=== PATIENT | male | born 1945 | race African-American/Black ===

== ENCOUNTER 2017-03-29 16:46 | Emergency (ER) | payer MEDICARE, BC ==
[2017-03-29] MEDS ORDERED: Adacel (T-DAP) 0.5 ML VIAL ONE (19:06)
[2017-03-29] MEDS ORDERED: Lidocaine 1% w/Epinephrine 1:200K 30 ML VIAL ONE (19:06)
[2017-03-29] MEDS ORDERED: Sodium Bicarbonate 2.4 MEQ/5 ML ONE (19:06)
[2017-03-29] MEDS ORDERED: Aspirin 325 MG TAB ONE (20:13)
== END 2017-03-29 20:30 | disposition home or self-care (01) ==
LOC: ERS 16:46
DX: S01.111A Laceration without foreign body of right eyelid and periocular area, initial encounter (principal); I10 Essential (primary) hypertension; G20 Parkinson's disease; W19.XXXA Unspecified fall, initial encounter; Y93.02 Activity, running
CPT/HCPCS: 12011; 90471; 90715

== ENCOUNTER 2017-04-03 10:23 | Emergency (ER) | payer MEDICARE, BC | END 2017-04-03 11:25 | disposition home or self-care (01) | LOC: ERS 10:23 | DX: S01.81XD Laceration without foreign body of other part of head, subsequent encounter (principal); I10 Essential (primary) hypertension; G20 Parkinson's disease ==

== ENCOUNTER 2018-07-22 14:40 | Inpatient (IN) | payer MEDICARE, BC ==
[2018-07-22 15:13] LABS: #Eosinphils 0.2 thou/uL (0.0-0.7); #Lymphocytes 1.3 thou/uL (1.20-3.40); #Monocytes 0.7 thou/uL (0.11-0.59); #Neutrophils 5.8 thou/uL (1.40-6.50); %Basophils 0.1 % (0.0-1.0); %Eosinophils 2.2 % (0.0-10.0); %Lymphocytes 16.1 % (21.0-51.0); %Monocytes 9.2 % (0.0-10.0); %Neutrophils 72.4 % (42.0-75.0); Hemoglobin 11.5 g/dL (14.0-18.0); Mean Corpuscular HGB CONC 32.6 g/dL (32.0-36.0); Mean Corpuscular Hemoglobin 28.4 pg (27.0-31.0); Mean Platelet Volume 8.6 fL (7.4-10.4); Platelet Count 126 thou/uL (130-400); RBC Distribution Width 11.6 % (11.5-14.5); Red Blood Cell (RBC) Count 4.07 mill/uL (4.70-6.10)
[2018-07-22 15:33] LABS: ALT (SGPT) 13 U/L (8-55); AST (SGOT) 11 U/L (5-34); Albumin 3.6 g/dL (3.4-4.8); Alkaline Phosphatase 63 U/L (40-150); Anion Gap 22 mmol/L (10-20); BUN (Urea Nitrogen) 80 mg/dL (8.4-25.7); Bilirubin, Total 0.5 mg/dL (0.2-1.2); CK (CPK) 59 U/L (30-200); Calc. Creatinine Clearance 0 mL/min (70-130); Calcium 8.9 mg/dL (7.8-10.44); Carbon Dioxide 20 mmol/L (23-31); Chloride 94 mmol/L (98-107); Estimated GFR-MDRD 10; Globulin 2.9 g/dL (2.4-3.5); Glucose 129 mg/dL (83-110); Lipase 37 U/L (8-78); Potassium 4.7 mmol/L (3.5-5.1); Protein, Total 6.5 g/dL (5.8-8.1); Sodium 131 mmol/L (136-145)
--- NOTE | 2018-07-22 15:44 | RAD ---
CHEST 1 VIEW: Date: 07/22/18 HISTORY: Generalized weakness. COMPARISON: 01/22/09. FINDINGS: Monitor leads overlie the chest. Heart size within normal limits. The lungs are clear. No pneumonia, edema, or other acute process. IMPRESSION: No acute intrathoracic disease. POS: [facility]
[2018-07-22 15:55] LABS: CKMB 2.3 ng/mL (0-6.6)
[2018-07-22 16:10] LABS: Bilirubin Negative (Negative); Blood, Urine Large (Negative); Clarity CLEAR (Clear); Glucose, Urine (Dipstick) Negative (Negative); Leukocyte Negative (Negative); Nitrite Negative (Negative); Protein, Urine (Dipstick) Negative (Neg-Trace); Specific Gravity, Urine 1.011 (1.002-1.036); Urobilinogen 0.2 mg/dL (0.2-1.0)
[2018-07-22 16:11] LABS: Bacteria/HPF None Seen HPF (None Seen); Hyaline Casts/LPF 0-3 HYALINE CAST LPF (0-3 Hyaline); RBC/HPF GREATER THAN 50-TNTC HPF (0-3); Squamous Epithelial None Seen HPF (0-3); WBC/HPF 0-3 HPF (0-3)
[2018-07-22] MEDS ORDERED: cefTRIAXone\\ROCEPHIN 1 GM VIAL ONE (16:17)
--- NOTE | 2018-07-22 16:45 | CT ---
CT BRAIN WITHOUT CONTRAST: Date: 07-22-18 History: Weakness Comparison: 01-22-09 FINDINGS: Noncontrast enhanced CT images of the brain demonstrate no evidence of acute intracranial masses, hem orrhages, strokes or contusions. The ventricles are of normal size. IMPRESSION: Normal CT brain. POS: [facility]
[2018-07-22] MEDS ORDERED: Acetaminophen 325 MG TAB PO PRN (17:08)
[2018-07-22] MEDS ORDERED: Bisacodyl 5 MG TAB PO PRN (17:08)
[2018-07-22] MEDS ORDERED: Acetaminophen 650 MG Suppository PR PRN (17:08)
[2018-07-22] MEDS ORDERED: hydrALAZINE 20 MG/ML VIAL SLOW IVP PRN (17:17)
--- NOTE | 2018-07-22 17:56 | HP ---
PRIMARY CARE PROVIDER: Dr. Myranda Walters. CHIEF COMPLAINT: Generalized weakness. HISTORY OF PRESENT ILLNESS: Mr. Mendoza is a pleasant 72-year-old gentleman, who was seen at [facility] on July 22, 2018. He has a history of hypertension and chronic back pain. He also has a history of Parkinson disease. He reports that he saw Dr. Autumn Reyes, approximately a year ago for Parkinson disease. He was prescribed a medication for Parkinson's, but he stopped taking it because it made him nauseous. He has not followed up with Neurology. More recently, over the last week, he had suprapubic pain. He describes it as a pressure-like sensation, 9.5/10, nonradiating, improved with urination. He reports that his urine has been only a dribble over the last week. He also reports generalized weakness over the last week. He usually ambulates with a walker. His family reports that over the last one week he has not been ambulating much. REVIEW OF SYSTEMS: All other systems reviewed and found to be negative. PAST MEDICAL HISTORY: Hypertension, chronic back pain, Parkinson disease. He also reports that he was started on diuretic for lower extremity swelling. PAST SURGICAL HISTORY: None. FAMILY HISTORY: No family history of coronary artery disease. SOCIAL HISTORY: The patient denies tobacco use, alcohol use, or recreational drug use. CODE STATUS: I discussed his code status. He is full code. ALLERGIES: NO KNOWN DRUG ALLERGIES. CURRENT MEDICATIONS: 1. Torsemide 10 mg 2 times a day. 2. Ranitidine 150 mg 2 times a day. 3. Lisinopril 5 mg daily. 4. Potassium chloride 10 mEq daily. PHYSICAL EXAMINATION: GENERAL: On examination, Mr. Mendoza is awake and alert, not in acute distress. VITAL SIGNS: Blood pressure is 144/84, pulse 95, respiratory rate 20, and oxygen saturation 95% on room air. He is afebrile. EYES: No scleral icterus, no conjunctival pallor. ENT: Dry mucosal membranes, no oropharyngeal erythema or exudates. NECK: Supple, nontender, and trachea is midline. RESPIRATORY: Accessory muscles of breathing are not active. Chest wall movements are symmetric bilaterally. LUNGS: Clear to auscultation without wheeze, rhonchi, or crepitations. CARDIOVASCULAR: S1 and S2 are heard, regular. Peripheral pulses palpable. No carotid bruit. No pericardial rub. ABDOMEN: Distended, mild suprapubic tenderness. No guarding or rigidity. Bowel sounds are heard. NEUROLOGIC: Cranial nerves 2 through 12 are intact. He has a parkinsonian tremor. SKIN: No rashes or subcutaneous nodules. LYMPHATIC: No cervical lymphadenopathy. PSYCHIATRIC: Normal mood, normal affect, the patient is oriented to person and place, not to time. LABORATORY DATA: Mr. Mendoza' labs and investigations were reviewed. I reviewed his electrocardiogram, which shows normal sinus rhythm, no ST changes to suggest an acute coronary syndrome. I also reviewed his chest x-ray, which does not show any pulmonary infiltrates. Noncontrast CT scan of the brain was normal. He has normal white count, normocytic anemia with hemoglobin 11.5, decreased platelet count of 126,000, decreased sodium of 131, decreased carbon dioxide of 20, elevated anion gap of 22, elevated blood urea nitrogen of 80 and elevated creatinine of 6.79. LFTs are normal. Troponin I is indeterminate at 0.096. Urinalysis is positive for blood, negative for nitrite and leukocyte esterase. ASSESSMENT AND PLAN: Mr. Mendoza is a pleasant 72-year-old gentleman, who was seen at [facility] on July 22, 2018. His problem list includes: 1. Acute kidney injury: Mr. Mendoza is presenting with acute kidney injury. He has elevated creatinine of 6.79, last known creatinine was 0.84 in March of 2018. He had a Foss catheter placed in the emergency room with removal of large volume of urine, which was bloody, with improvement in symptoms. Acute kidney injury is most likely postrenal. I am awaiting renal ultrasound. He will be admitted to the hospital for further management. Urology and Nephrology services are being consulted. We will hold nephrotoxic medications including lisinopril and torsemide for now. We will provide gentle hydration. 2. Elevated troponin: The patient denies any chest pain. Elevated troponin I is most likely secondary to renal failure. We will recheck troponin level. 3. Hypertension: We will hold lisinopril. We will start the patient on p.r.n. IV hydralazine. 4. Anion gap metabolic acidosis: Most likely secondary to uremia from acute kidney injury. 5. Hyponatremia: We will provide normal saline and recheck sodium level. Many thanks for allowing me to participate in your patient's care. Please feel free to contact me with any questions or concerns. LEVEL OF RISK: High. LEVEL OF COMPLEXITY: High. Job ID: [id number]
[2018-07-22 20:16] VITALS: BMI 29.1
[2018-07-22] MEDS: Famotidine 20 MG TAB PO SCH (22:49)
[2018-07-22] MEDS: traMADol HCl 50 MG TAB PO PRN (22:49)
[2018-07-22] MEDS: Sodium Chloride 0.9% 1,000 ML IV SCH (22:50)
[2018-07-22 23:12] LABS: Hemoglobin 10.6 g/dL (14.0-18.0)
[2018-07-23] MEDS ORDERED: Sodium Chloride 0.9% 500 ML IV SCH (01:45)
[2018-07-23] MEDS: Sodium Chloride 0.9% 1,000 ML IV SCH ×2 (04:37→21:04)
[2018-07-23] MEDS: Famotidine 20 MG TAB PO SCH ×2 (09:30→20:20)
[2018-07-23 09:50] LABS: #Eosinphils 0.2 thou/uL (0.0-0.7); #Monocytes 0.8 thou/uL (0.11-0.59); #Neutrophils 5.1 thou/uL (1.40-6.50); %Basophils 0.5 % (0.0-1.0); %Eosinophils 2.4 % (0.0-10.0); %Lymphocytes 14.3 % (21.0-51.0); %Monocytes 11.1 % (0.0-10.0); %Neutrophils 71.7 % (42.0-75.0); Hemoglobin 9.3 g/dL (14.0-18.0); Mean Corpuscular Hemoglobin 27.2 pg (27.0-31.0); Mean Platelet Volume 8.4 fL (7.4-10.4); Platelet Count 109 thou/uL (130-400); RBC Distribution Width 11.6 % (11.5-14.5); Red Blood Cell (RBC) Count 3.41 mill/uL (4.70-6.10); White Blood Cell (WBC) Count 7.1 thou/uL (4.8-10.8)
--- NOTE | 2018-07-23 10:08 | CON ---
DATE OF CONSULTATION: HISTORY OF PRESENT ILLNESS: Mr. Mendoza is a 72-year-old black male, who was admitted for generalized malaise. He was found to have a distended bladder. His creatinine was also significantly abnormal from normal baseline. We are now consulted for his acute kidney injury. Of note is that a Foss catheter was inserted and a peak urine output was noted. The suggestion that he may have a low bladder outlet obstruction was made. He also has a bloody urine. Renal ultrasound is pending. A Urology consult has been done. REVIEW OF SYSTEMS: No chest pain or shortness of breath. Positive for generalized malaise. Positive for chronic resting tremors. No nausea. No vomiting. Decreased appetite. Decreased energy level. No headache. No diplopia. No fever or chills. MEDICATIONS: 1. Tylenol 650 mg q.4 p.r.n. 2. Hydralazine 10 mg IV q.6 p.r.n. 3. Normal saline 75 mL/h, status post ceftriaxone. 4. Pepcid 20 mg tablet b.i.d. Home medications includes the following; 1. Tramadol 50 mg q.6 p.r.n. 2. Torsemide 10 mg p.o. b.i.d. 3. Ranitidine 150 mg p.o. b.i.d. 4. KCl 10 mEq once a day. 5. Lisinopril 5 mg daily. 6. Lorazepam 1 mg daily. PAST MEDICAL HISTORY: 1. The patient has BPH. 2. He has Parkinson disease. 3. Chronic leg edema. PAST SURGICAL HISTORY: No significant surgeries. SOCIAL HISTORY: The patient is , has 2 children. 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 Education, high school. Currently, no smoking, no alcohol intake, and no IV drug abuse. ALLERGIES: NO KNOWN DRUG ALLERGIES. TRAUMA: None. IMMUNIZATIONS: Up-to-date. HOSPITALIZATIONS: Please see past medical history. FAMILY HISTORY: No family history of ESRD. PHYSICAL EXAMINATION: VITAL SIGNS: Blood pressure 114/61, heart rate 67, respiratory rate 20, temperature 98.5, and pulse ox 100%. GENERAL: Awake, supine, comfortable, not in overt distress. SKIN: Decreased turgor. HEENT: He has pinkish conjunctivae. Anicteric sclerae. NECK: No neck mass. No carotid bruits. No JVD. CHEST: No deformities. LUNGS: Clear breath sounds. HEART: Normal sinus rhythm. No murmurs. No gallops. No rubs. ABDOMEN: Globular, soft, and nontender. No masses. EXTREMITIES: No edema. No deformities. LABORATORY DATA: Laboratories of July 22, 2018; sodium 131, potassium 4.7, chloride 94, carbon dioxide 20, BUN is 80, creatinine 6.79. On April 04, 2018, creatinine 0.84. IMAGING DATA: Renal ultrasound is pending. On July 22, 2018; chest x-ray shows no CHF or infiltrates. CT scan of the brain on July 22, 2018; normal CT finding. ASSESSMENT AND PLAN: Acute kidney injury - Most likely secondary from a low bladder outlet obstruction - also consider hemodynamically-mediated renal dysfunction. There may also be a component of prerenal azotemia. The patient was on TIFFANY inhibitors and diuretics. Currently, the TIFFANY inhibitors and diuretics are on hold. He is also receiving a gentle volume repletion. There is no indication for any dialytic intervention. Renal ultrasound is pending. Urology consult has been done. Reviewed the urinalysis when the urine is less bloody. Overall, agree with current management. Job ID: [id number] MTDD
[2018-07-23 10:13] LABS: Anion Gap 11 mmol/L (10-20); BUN (Urea Nitrogen) 29 mg/dL (8.4-25.7); Calc. Creatinine Clearance 65 mL/min (70-130); Carbon Dioxide 22 mmol/L (23-31); Chloride 108 mmol/L (98-107); Estimated GFR-MDRD 77; Glucose 84 mg/dL (83-110); Potassium 4.9 mmol/L (3.5-5.1); Sodium 136 mmol/L (136-145)
--- NOTE | 2018-07-23 13:12 | ULT ---
RENAL ULTRASOUND: INDICATION: Pain, obstructive uropathy. FINDINGS: The left kidney as demonstrated is 9.3 cm in length and the right kidney 9.3 cm in length. No eviden ce of hydronephrosis of the kidneys. There is a Foss catheter within the urinary bladder. Prominen t mass effect upon the urinary bladder by heterogeneous irregular soft tissue echogenicity may relate to prostatomegaly. IMPRESSION: 1. No obstructive uropathy of either kidney. 2. Probable enlarged heterogeneous prostate gland adjacent the urinary bladder with associated mass effect. Recommend correlation with physical exam and prostate specific antigen values. POS: [facility]
[2018-07-23] MEDS ORDERED: Milk Of Magnesia 30 ML UDCUP PO PRN (14:26)
--- NOTE | 2018-07-23 15:43 | PDOC.PN ---
- Subjective Encounter Start Date: 07/23/18 Encounter Start Time: 09:00 Pt seen for followup re: acute kidney injury. Feels better, no complaints. - Objective Resuscitation Status - Order Detail: 07/22/18 17:08 Resuscitation Status Routine Resuscitation Status: FULL: Full Resuscitation Discussed with: patient MARIO ALBERTO Reviewed: Yes Vital Signs & Weight: Vital Signs (12 hours) Temp Pulse Resp BP BP Pulse Ox 07/23/18 12:40 98.1 F 71 20 128/73 99 07/23/18 09:30 100 07/23/18 08:00 98.5 F 67 20 114/61 100 07/23/18 04:40 98.8 F 77 18 93/56 L 96 Weight Weight 175 lb 0.752 oz I&O: 07/22/18 07/23/18 07/24/18 06:59 06:59 06:59 Intake Total 1672 Output Total 3350 Balance -1678 Result Diagrams: 07/23/18 09:22 07/23/18 09:22 Additional Labs: labs reviewed by me Phys Exam - Physical Examination Constitutional: NAD HEENT: moist MMs, sclera anicteric, oral pharynx no lesions, 2+ tonsils Neck: no nodes, no JVD, supple, full ROM Respiratory: clear to auscultation bilateral Cardiovascular: RRR, no rub S1, s2 Gastrointestinal: soft, non-tender, no distention, positive bowel sounds Neurological: moves all 4 limbs tremor Psychiatric: normal affect Dx/Plan (1) SARAH (acute kidney injury) Code(s): N17.9 - ACUTE KIDNEY FAILURE, UNSPECIFIED Status: Acute Comment: Improved, due to obstructive uropathy (2) Obstructive uropathy Code(s): N13.9 - OBSTRUCTIVE AND REFLUX UROPATHY, UNSPECIFIED Status: Acute Comment: pt started on Flomax and finasteride; s/p Foss catheter (3) Parkinson disease Code(s): G20 - PARKINSON'S DISEASE Status: Chronic Comment: pt to followup as outpatient with neurology (4) HTN (hypertension) Code(s): I10 - ESSENTIAL (PRIMARY) HYPERTENSION Status: Chronic Comment: controlled - Plan plan discussed w/ family, out of bed/ambulate, DVT proph w/SCDs * . Review of Systems - Review of Systems Constitutional: negative: fever, chills, sweats, weakness, malaise Respiratory: negative: Cough, Shortness of Breath, SOB with Excertion, Pleuritic Pain, Wheezing Cardiovascular: negative: chest pain, palpitations, orthopnea, paroxysmal nocturnal dyspnea, edema, light headedness Gastrointestinal: negative: Nausea, Vomiting, Abdominal Pain, Diarrhea, Constipation, Melena, Hematochezia Genitourinary: Hematuria. negative: Dysuria, Frequency, Incontinence, Retention Skin: negative: Rash, Lesions, Fernando, Bruising - Medications/Allergies Allergies/Adverse Reactions: Allergies Allergy/AdvReac Type Severity Reaction Status Date / Time No Known Drug Allergies Allergy Verified 07/22/18 17:07 Medications: Current Medications Acetaminophen (Tylenol) 650 mg PO Q4H PRN PRN Reason: Headache/Fever/Mild Pain (1-3) Acetaminophen (Tylenol) 650 mg RI Q4H PRN PRN Reason: Headache/Fever/Mild Pain (1-3) Bisacodyl (Dulcolax) 10 mg PO DAILYPRN PRN PRN Reason: Constipation Docusate Sodium (Colace) 100 mg PO BID [facility] Famotidine (Pepcid) 20 mg PO BID [facility] Last Admin: 07/23/18 09:30 Dose: 20 mg Finasteride (Proscar) 5 mg PO DAILY [facility] Hydralazine HCl (Apresoline) 10 mg SLOW IVP Q6H PRN PRN Reason: SBP Greater Than 170 Sodium Chloride (Normal Saline 0.9%) 1,000 mls @ 75 mls/hr IV .[id number] [facility] Last Admin: 07/23/18 04:37 Dose: 1,000 mls Magnesium Hydroxide (Milk Of Magnesium) 30 ml PO DAILYPRN PRN PRN Reason: Constipation Tamsulosin HCl (Flomax) 0.4 mg PO BID [facility] Tramadol HCl (Ultram) 50 mg PO Q6H PRN PRN Reason: Moderate to Severe Pain (6-10) Last Admin: 07/22/18 22:49 Dose: 50 mg
[2018-07-23] MEDS: Tamsulosin HCl 0.4 MG CAP PO SCH (20:20)
[2018-07-23] MEDS: traMADol HCl 50 MG TAB PO PRN (20:20)
[2018-07-23] MEDS: Docusate 100 MG CAP PO SCH (20:20)
--- NOTE | 2018-07-24 04:59 | CON ---
DATE OF CONSULTATION: 07/23/2018 REASON FOR CONSULTATION: Bladder outlet obstruction as a Foss was placed for 3450 in the ER. HISTORY OF PRESENT ILLNESS: The patient reports no prior episodes of retention. No urinary tract infections. No hematuria. No stones. First, I did not realize he had seen my partner, but it appears that he only saw Dr. Keane one time and I reviewed the case with him afterwards and ultimately I will continue to follow him. It does not appear that a PVR was checked when Dr. Keane saw him the first time and he had not followed up with him since February 2018. Prior to that, he has been followed by Dr. Fox. He has gross hematuria now, but he has never had this prior. He has had a history of elevated PSAs, but no biopsy. Per Dr. Keane's notes, he actually had been treated with antibiotics previously and the PSAs came down. PAST MEDICAL HISTORY: Significant for hypertension, Parkinson's diagnosed in , GERD, back pain, lower extremity swelling that has been chronic. PAST SURGICAL HISTORY: None. MEDICATIONS: Include; 1. Torsemide. 2. Ranitidine. 3. Lisinopril. 4. Potassium. 5. Aspirin 325 mg. ALLERGIES: NONE. SOCIAL HISTORY: No tobacco, drugs, or alcohol. He uses a walker at home and is able to ambulate. FAMILY HISTORY: Includes mother at 85 of blood disorder after a colostomy , not known, probably not for cancer and his father at 87 of diabetes complications. REVIEW OF SYSTEMS: Reveal that he has never had a colonoscopy. He has had the prostate cancer screening with elevated PSAs, but no biopsies. He has no chest pain, but he does have a cough without any shortness of breath. No fever or chills. It is not a productive cough. He has had nausea, but no vomiting, but the nausea was just after a greasy breakfast. He has been constipated when he takes tramadol and he has not gone for 4 days, but he does not actually feel constipated. He had abdominal pain before the catheter was placed and then that abdominal pain resolved. PHYSICAL EXAMINATION: VITAL SIGNS: T-max 98.8; blood pressure 114/61, previously it was 93/55; heart rate in the 60s to 80s, saturating 100% on room air. Since getting up to the floor, it looks like he had another 3L or more of urine. GENERAL: He has a left hand tremor. HEART: Regular rate and rhythm. No murmurs, gallops, or rubs. LUNGS: Clear to auscultation bilaterally. ABDOMEN: Soft, nondistended, with some crustation noted in the umbilicus. He had normoactive bowel sounds. He had no CVA tenderness. GENITOURINARY: His testes are descended and atrophic, but without masses. His phallus is circumcised without lesions with a Foss catheter in place and some blood around the catheter and at the meatus as well as maroon urine in the tubing. Digital rectal exam was deferred due to my inability to position the patient for this. LABORATORY DATA: BUN and creatinine are 29 and 1.13. It had been 6.79 when we had admitted. His baseline in March was 0.84. His urinalysis revealed 0 to 3 wbc' s, too numerous to count rbc's, no bacteria, and no squamous cells. Urinalysis from 02/26/2018, 09/04/2013, and 07/02/2012, revealed 0 to 3 wbc's, 0 to 3 rbc's, and no bacteria previously. PSA from 10/23 was 6.08 and then prior to that, it was 4.[address] back to July 2013. Renal ultrasound from 07/23/2018, revealed no hydronephrosis, stones, or masses. Foss was in the bladder with enlarged prostate. ASSESSMENT AND PLAN: I reviewed all of this with his son and him including benign prostatic hyperplasia and how the bleeding is most likely related to the prostate. However, he does deserve a workup. He already had an ultrasound, but as an outpatient, he will deserve cystoscopy. I would start tamsulosin twice a day and add finasteride. I would ensure he has no concerns for constipation and has had bowel movement sooner than later. The nurses can hand irrigate as needed. I will ensure he has physical therapy as my digital rectal exam was deferred because it was difficult for him to even roll on his side. He also has an elevated PSA, but I am not concerned about this as an acute issue nor am I concerned for metastatic prostate cancer at this time. Ultimately, he is likely to benefit from [employer] laser vaporization of the prostate despite his Parkinson's given the retention. However, with his bladder being distended as it is, it will be quite some time before he is ready to have attempted voiding trial--or that he will definitively void in the future even with surgical therapy. Job ID: [id number] MTDD
[2018-07-24] MEDS ORDERED: Ondansetron PF 4 MG/2 ML Vial IVP PRN (08:34)
[2018-07-24 08:56] LABS: #Basophils 0.1 thou/uL (0.0-0.2); #Eosinphils 0.3 thou/uL (0.0-0.7); #Lymphocytes 1.5 thou/uL (1.20-3.40); #Monocytes 0.8 thou/uL (0.11-0.59); #Neutrophils 5.7 thou/uL (1.40-6.50); %Basophils 0.8 % (0.0-1.0); %Eosinophils 3.6 % (0.0-10.0); %Lymphocytes 17.4 % (21.0-51.0); %Monocytes 9.8 % (0.0-10.0); %Neutrophils 68.4 % (42.0-75.0); Hemoglobin 9.1 g/dL (14.0-18.0); Mean Corpuscular HGB CONC 32.4 g/dL (32.0-36.0); Mean Corpuscular Hemoglobin 28.4 pg (27.0-31.0); Mean Corpuscular Volume 87.8 fL (78.0-98.0); Mean Platelet Volume 7.8 fL (7.4-10.4); Platelet Count 137 thou/uL (130-400); RBC Distribution Width 11.4 % (11.5-14.5); Red Blood Cell (RBC) Count 3.18 mill/uL (4.70-6.10); White Blood Cell (WBC) Count 8.4 thou/uL (4.8-10.8)
[2018-07-24 09:09] LABS: Anion Gap 9 mmol/L (10-20); BUN (Urea Nitrogen) 11 mg/dL (8.4-25.7); Calc. Creatinine Clearance 110 mL/min (70-130); Calcium 8.3 mg/dL (7.8-10.44); Carbon Dioxide 27 mmol/L (23-31); Chloride 104 mmol/L (98-107); Estimated GFR-MDRD Greater than 90; Glucose 101 mg/dL (83-110); Potassium 4.2 mmol/L (3.5-5.1); Sodium 136 mmol/L (136-145)
[2018-07-24] MEDS: Docusate 100 MG CAP PO SCH ×2 (09:48→19:53)
[2018-07-24] MEDS: Famotidine 20 MG TAB PO SCH ×2 (09:48→19:53)
[2018-07-24] MEDS: Tamsulosin HCl 0.4 MG CAP PO SCH ×2 (09:48→19:53)
[2018-07-24] MEDS: Finasteride 5 MG TAB PO SCH (09:48)
--- NOTE | 2018-07-24 10:30 | PRG ---
DATE OF SERVICE: 07/24/2018 SUBJECTIVE: Mr. Mendoza is a 72-year-old black male, who was admitted for generalized malaise. He was found to be in acute kidney injury. He was also found to have a low bladder outlet obstruction. Foss catheter has been inserted. With this simple maneuver, his renal function has dramatically improved. No other complaints today. Renal ultrasound did not show any renal obstruction suggestive that acute low bladder outlet obstruction may have developed only in a short duration. He has also been evaluated by Urology. No complaints of chest pain or shortness of breath. OBJECTIVE: VITAL SIGNS: Blood pressure 150/74, heart rate 81, respiratory rate 16, temperature 98.5, pulse ox 100 percent on room air. GENERAL: Awake, alert, comfortable, not in distress. SKIN: Adequate turgor. HEENT: He has pinkish conjunctivae. Anicteric sclerae. NECK: No neck mass. No carotid bruits. No JVD. CHEST: No deformities. LUNGS: Clear breath sounds. No wheezing. No crackles. HEART: Normal sinus rhythm. No murmurs, gallops, or rubs. ABDOMEN: Globular, soft, nontender. No masses. EXTREMITIES: No edema. NEUROLOGICAL: Positive for resting tremors. MEDICATIONS: Medications of July 24, 2018, were reviewed. LABORATORY DATA: Laboratories of July 24, 2018; white count 8.4, hemoglobin 9.1, hematocrit 28. Sodium 136, potassium 4.2, chloride 104, carbon dioxide 24, BUN 11, creatinine 0.67, glucose 101, calcium 8.3. Urinalysis, July 22, 2018, no protein noted, RBC greater than 50. ASSESSMENT AND PLAN: 1. Acute kidney injury - most likely secondary to low bladder outlet obstruction, much improved with placement of Foss catheter. 2. Continue current management. Continue normal saline. We felt that he may also have had a prerenal component. Please note, his lisinopril was discontinued as well as the torsemide. 3. Low bladder outlet obstruction. Urology is following. 4. Hypertension. I would probably resume or start him on another blood pressure medication. Consider nifedipine 30 mg XL tablet once daily. Job ID: [id number]
[2018-07-24] MEDS: Sodium Chloride 0.9% 1,000 ML IV SCH (11:36)
--- NOTE | 2018-07-24 14:52 | PDOC.PN ---
- Subjective Encounter Start Date: 07/24/18 Encounter Start Time: 09:20 Pt seen for followup re: obstructive uropathy. Had nausea, other no complaints. - Objective Resuscitation Status - Order Detail: 07/22/18 17:08 Resuscitation Status Routine Resuscitation Status: FULL: Full Resuscitation Discussed with: patient MARIO ALBERTO Reviewed: Yes Vital Signs & Weight: Vital Signs (12 hours) Temp Pulse Resp BP Pulse Ox 07/24/18 08:00 98.5 F 81 16 150/74 H 100 07/24/18 04:00 97.8 F 67 18 130/68 100 Weight Weight 175 lb 0.752 oz I&O: 07/23/18 07/24/18 07/25/18 06:59 06:59 06:59 Intake Total 1671 7055 Output Total 5753 6200 Balance -6908 -8772 Result Diagrams: 07/24/18 08:36 07/24/18 08:36 Additional Labs: labs reviewed by me Phys Exam - Physical Examination Constitutional: NAD HEENT: moist MMs Neck: supple Respiratory: clear to auscultation bilateral Cardiovascular: RRR Gastrointestinal: soft Neurological: moves all 4 limbs tremor Psychiatric: normal affect Dx/Plan (1) Obstructive uropathy Code(s): N13.9 - OBSTRUCTIVE AND REFLUX UROPATHY, UNSPECIFIED Status: Acute Comment: continue Flomax and finasteride; Pt has Foss catheter (2) Parkinson disease Code(s): G20 - PARKINSON'S DISEASE Status: Chronic Comment: pt to followup as outpatient (3) HTN (hypertension) Code(s): I10 - ESSENTIAL (PRIMARY) HYPERTENSION Status: Chronic Comment: controlled (4) SARAH (acute kidney injury) Code(s): N17.9 - ACUTE KIDNEY FAILURE, UNSPECIFIED Status: Resolved Comment : due to obstructive uropathy - Plan * . Review of Systems - Review of Systems Cardiovascular: negative: chest pain, palpitations, orthopnea, paroxysmal nocturnal dyspnea, edema, light headedness Gastrointestinal: Nausea. negative: Vomiting, Abdominal Pain, Diarrhea, Constipation, Melena, Hematochezia - Medications/Allergies Allergies/Adverse Reactions: Allergies Allergy/AdvReac Type Severity Reaction Status Date / Time No Known Drug Allergies Allergy Verified 07/22/18 17:07 Medications: Current Medications Acetaminophen (Tylenol) 650 mg PO Q4H PRN PRN Reason: Headache/Fever/Mild Pain (1-3) Acetaminophen (Tylenol) 650 mg RI Q4H PRN PRN Reason: Headache/Fever/Mild Pain (1-3) Bisacodyl (Dulcolax) 10 mg PO DAILYPRN PRN PRN Reason: Constipation Docusate Sodium (Colace) 100 mg PO BID [facility] Last Admin: 07/24/18 09:48 Dose: 100 mg Famotidine (Pepcid) 20 mg PO BID [facility] Last Admin: 07/24/18 09:48 Dose: 20 mg Finasteride (Proscar) 5 mg PO DAILY [facility] Last Admin: 07/24/18 09:48 Dose: 5 mg Hydralazine HCl (Apresoline) 10 mg SLOW IVP Q6H PRN PRN Reason: SBP Greater Than 170 Sodium Chloride (Normal Saline 0.9%) 1,000 mls @ 75 mls/hr IV .[id number] [facility] Last Admin: 07/24/18 11:36 Dose: 1,000 mls Magnesium Hydroxide (Milk Of Magnesium) 30 ml PO DAILYPRN PRN PRN Reason: Constipation Nifedipine (Procardia Xl) 30 mg PO DAILY [facility] Ondansetron HCl (Zofran) 4 mg IVP Q6H PRN PRN Reason: Nausea/Vomiting Last Admin: 07/24/18 08:50 Dose: 4 mg Tamsulosin HCl (Flomax) 0.4 mg PO BID [facility] Last Admin: 07/24/18 09:48 Dose: 0.4 mg Tramadol HCl (Ultram) 50 mg PO Q6H PRN PRN Reason: Moderate to Severe Pain (6-10) Last Admin: 07/23/18 20:20 Dose: 50 mg
--- NOTE | 2018-07-24 17:20 | PRG ---
DATE OF SERVICE: 07/24/2018 SUBJECTIVE: The patient has done well overnight. He seems more alert and more comfortable. He has a better appetite. He has no complaints of pain or swelling. OBJECTIVE: VITAL SIGNS: He has been afebrile. His vital signs are stable. GENITOURINARY: He put out another 3600 over the last 24 hours and even more than 1 L just in the last several hours. The urine has cleared to approximately light pink tinged and has been draining without difficulty. LABORATORY DATA: The laboratory values reveal the creatinine has now come down to 0.67. ASSESSMENT AND PLAN: We had a long discussion of how I would anticipate doing cystoscopy as an outpatient keeping the catheter in and he would be safe to be discharged from my standpoint with that. We will do a voiding trial when he does see me in the office and anticipate GreenLight laser vaporization in the near future assuming he is medically cleared and stable for this. We reviewed all of this in detail and how he should continue taking tamsulosin twice a day and finasteride once a day. Catheter care and removal information sheets were left in the chart as were prescriptions for these medicines. My office will call him once he is at home and set up a followup for voiding trial in the next 2 to 3 weeks. Job ID: [id number] MTDD
[2018-07-25] MEDS: Sodium Chloride 0.9% 1,000 ML IV SCH (00:25)
[2018-07-25 05:20] LABS: #Eosinphils 0.5 thou/uL (0.0-0.7); #Lymphocytes 1.5 thou/uL (1.20-3.40); #Monocytes 0.8 thou/uL (0.11-0.59); %Basophils 0.5 % (0.0-1.0); %Eosinophils 5.3 % (0.0-10.0); %Monocytes 8.3 % (0.0-10.0); Hemoglobin 9.3 g/dL (14.0-18.0); Mean Corpuscular HGB CONC 31.7 g/dL (32.0-36.0); Mean Corpuscular Hemoglobin 28.1 pg (27.0-31.0); Mean Corpuscular Volume 88.7 fL (78.0-98.0); Mean Platelet Volume 7.5 fL (7.4-10.4); Platelet Count 164 thou/uL (130-400); RBC Distribution Width 11.3 % (11.5-14.5); Red Blood Cell (RBC) Count 3.32 mill/uL (4.70-6.10); White Blood Cell (WBC) Count 9.9 thou/uL (4.8-10.8)
[2018-07-25 06:43] LABS: Anion Gap 10 mmol/L (10-20); BUN (Urea Nitrogen) 7 mg/dL (8.4-25.7); Calc. Creatinine Clearance 109 mL/min (70-130); Calcium 8.6 mg/dL (7.8-10.44); Carbon Dioxide 28 mmol/L (23-31); Chloride 103 mmol/L (98-107); Estimated GFR-MDRD Greater than 90; Glucose 92 mg/dL (83-110); Potassium 3.9 mmol/L (3.5-5.1); Sodium 137 mmol/L (136-145)
[2018-07-25] MEDS: Finasteride 5 MG TAB PO SCH (08:19)
[2018-07-25] MEDS: Docusate 100 MG CAP PO SCH (08:19)
[2018-07-25] MEDS: Famotidine 20 MG TAB PO SCH (08:19)
[2018-07-25] MEDS: Tamsulosin HCl 0.4 MG CAP PO SCH (08:19)
[2018-07-25] MEDS ORDERED: NIFEdipine XL 30 MG TAB PO SCH (09:00)
--- NOTE | 2018-07-25 16:24 | PRG ---
DATE OF SERVICE: 07/25/2018 SUBJECTIVE: I noted he was still in-house and he knows he will be discharged with his catheter and follow up for a voiding trial in the office. Since he was still here, I went ahead and ordered an echocardiogram as part of anticipated need for cardiac clearance. I reviewed this with him today. OBJECTIVE: VITAL SIGNS: His vitals remain stable. He still had excellent urine output and the urine is light pink to clear in the tubing. LABORATORY DATA: There is no concerning new labs or issues. ASSESSMENT: We have a 72-year-old man, admitted with bladder outlet obstruction and renal failure secondary to this with excellent postobstructive diuresis with normalization of creatinine, now on tamsulosin twice a day and finasteride once a day. Cont tamsulosin twice a day and finasteride once a day. I will check a urine as an outpatient before his voiding trial appt. I will follow up in the office for a voiding trial as well as cystoscopy and transrectal ultrasound. Job ID: [id number] MTDD
[2018-07-25 17:24] VITALS: BP 124/69; TEMP 98.9
--- NOTE | 2018-07-26 04:42 | DIS ---
DATE OF ADMISSION: 07/22/2018 DATE OF DISCHARGE: 07/25/2018 PRIMARY CARE PROVIDER: Dr. Myranda Walters. DISCHARGE DIAGNOSES: 1. Acute kidney injury. 2. Obstructive uropathy. CONDITION OF PATIENT ON THE DAY OF DISCHARGE: Stable. I assessed Mr. Mendoza on the day of discharge. He denies any chest pain or shortness of breath. Vital signs are stable. S1 and S2 are heard, regular. Lungs are clear to auscultation bilaterally. DISCHARGE MEDICATIONS: 1. Tramadol 50 mg every 6 hours as needed. 2. Lisinopril 5 mg daily. 3. Lorazepam 1 mg daily. 4. Potassium chloride 10 mEq daily. 5. Ranitidine 150 mg 2 times a day. 6. Torsemide 10 mg 2 times a day. CONSULTATIONS DURING THIS HOSPITALIZATION: Nephrology, Dr. Cruz and Urology, Dr. Johnson. HOSPITAL COURSE: Mr. Mendoza is a pleasant 72-year-old gentleman who was admitted to [facility] on 07/22/2018, for acute kidney injury and obstructive uropathy. He had Foss catheter placed in the emergency room. He was seen by [facility]. Renal ultrasound done on 07/23/2018, showed probable enlarged heterogeneous prostate gland adjacent to the urinary bladder with associated mass effect. Urology Service started him on finasteride and Flomax, with improvement of his symptoms. They anticipate cystoscopy as an outpatient, keeping the catheter in. They will do a voiding trial when he is seen in the office. They anticipate GreenLight laser vaporization in the near future. He is being discharged home with prescriptions for finasteride and Flomax. His pre-admission home medications were resumed, as dictated on my history and physical note dated 07/22/2018. On the day of discharge, Mr. Mendoza has white count 9900, hemoglobin 9.3, platelet count 164,000. Sodium 137, potassium 3.9, and creatinine 0.68. Many thanks for allowing me to participate in your patient's care. Please feel free to contact me with any questions or concerns. DISCHARGE DESTINATION: Home. TOTAL AMOUNT OF TIME SPENT COORDINATING THIS DISCHARGE: 33 minutes. Job ID: [id number]
== END 2018-07-25 19:49 | disposition home or self-care (01) | DRG 699 ==
LOC: ERS 14:40 → ERHOLD 16:07 → T4-B 16:15
PROVIDERS: ADMIT Family Medicine; ATTEND Family Medicine
PROC: 0T9B70Z Drainage of Bladder with Drainage Device, Via Natural or Artificial Opening (ICD-10-PCS; principal; 2018-07-22)
DX: N13.9 Obstructive and reflux uropathy, unspecified (principal); N17.9 Acute kidney failure, unspecified; E87.2 Acidosis; E87.1 Hypo-osmolality and hyponatremia; I10 Essential (primary) hypertension; G89.29 Other chronic pain; M54.9 Dorsalgia, unspecified; G20 Parkinson's disease
CPT/HCPCS: 36415; 51702; 70450; 71045; 76770; 80048; 80053; 81003; 81015; 82550; 82553; 83690; 84484; 85025; 87086; 93005; 93306; 96361; 96365; J0696; J2405

== ENCOUNTER 2018-10-19 15:04 | Outpatient (CLI) | payer MEDICARE, BC ==
[2018-10-19 16:38] LABS: Hemoglobin 11.3 g/dL (14.0-18.0); Mean Corpuscular HGB CONC 31.8 g/dL (32.0-36.0); Mean Corpuscular Hemoglobin 27.5 pg (27.0-31.0); Mean Corpuscular Volume 86.4 fL (78.0-98.0); Mean Platelet Volume 8.9 fL (7.4-10.4); Platelet Count 195 thou/uL (130-400); RBC Distribution Width 13.2 % (11.5-14.5); Red Blood Cell (RBC) Count 4.12 mill/uL (4.70-6.10); White Blood Cell (WBC) Count 6.7 thou/uL (4.8-10.8)
[2018-10-19 16:40] LABS: Bilirubin Negative (Negative); Blood, Urine Negative (Negative); Clarity CLEAR (Clear); Glucose, Urine (Dipstick) Negative (Negative); Leukocyte Negative (Negative); Nitrite Negative (Negative); Protein, Urine (Dipstick) Negative (Neg-Trace); Specific Gravity, Urine 1.012 (1.002-1.036); pH, Urine 6.5 (5.0-9.0)
[2018-10-19 16:43] LABS: Bacteria/HPF None Seen HPF (None Seen); Hyaline Casts/LPF 7-10 HYALINE CAST LPF (0-3 Hyaline); Pathc Cast-AUWi Flag 1.76 (0-2.49); Squamous Epithelial 0-3 HPF (0-3); WBC/HPF 0-3 HPF (0-3)
[2018-10-19 16:46] LABS: INR-International Normal Ratio 1.1; Prothrombin Time 14.3 SEC (12.0-14.7)
[2018-10-19 16:47] LABS: PTT 34.5 SEC (22.9-36.1)
[2018-10-19 16:58] LABS: Anion Gap 16 mmol/L (10-20); BUN (Urea Nitrogen) 27 mg/dL (8.4-25.7); Calc. Creatinine Clearance 0 mL/min (70-130); Calcium 9.9 mg/dL (7.8-10.44); Carbon Dioxide 27 mmol/L (23-31); Chloride 101 mmol/L (98-107); Estimated GFR-MDRD 78; Glucose 95 mg/dL (83-110); Potassium 5.9 mmol/L (3.5-5.1); Sodium 138 mmol/L (136-145)
== END 2018-10-19 15:05 | disposition home or self-care (01) ==
LOC: LABBT 15:04
PROVIDERS: ATTEND Urology
DX: Z01.818 Encounter for other preprocedural examination (principal); N40.1 Benign prostatic hyperplasia with lower urinary tract symptoms; G20 Parkinson's disease; R35.0 Frequency of micturition; R97.20 Elevated prostate specific antigen [PSA]
CPT/HCPCS: 80048; 81001; 85027; 85610; 85730; 87086; 93005; 93010

== ENCOUNTER 2018-10-25 09:15 | Observation (INO) | payer MEDICARE, BC ==
[2018-10-19 15:17] VITALS: BMI 23.6
[2018-10-25] MEDS ORDERED: Levofloxacin 500 mg/D5W 100 ml Premix Bag ONE (12:40)
[2018-10-25] MEDS ORDERED: Midazolam HCl 2 mg/2 ml Vial ONE (12:48)
[2018-10-25] MEDS ORDERED: Fentanyl 100 MCG/2 ML VIAL ONE ×3 (12:48→16:12)
[2018-10-25 13:23] LABS: Potassium 5.4 mmol/L (3.5-5.1)
[2018-10-25] MEDS ORDERED: B & O ONE (15:02)
[2018-10-25] MEDS ORDERED: Ondansetron PF 4 MG/2 ML Vial IVP PRN (15:09)
[2018-10-25] MEDS ORDERED: Mag-Al 1200 mg/1200 mg/30 ML UDCUP PO PRN (15:09)
[2018-10-25] MEDS ORDERED: Oxybutynin 5 MG TAB PO PRN (15:09)
[2018-10-25] MEDS ORDERED: Hyoscyamine Sulfate SL 0.125 mg Tablet SL PRN (15:09)
[2018-10-25] MEDS ORDERED: Acetaminophen 500 MG TAB PO PRN (15:09)
[2018-10-25] MEDS ORDERED: Phenazopyridine HCl 97.5 MG TABLET PO PRN (15:09)
[2018-10-25] MEDS ORDERED: diphenhydrAMINE 25 MG CAP PO PRN (15:09)
[2018-10-25] MEDS ORDERED: hydrALAZINE 20 MG/ML VIAL SLOW IVP PRN (15:09)
[2018-10-25] MEDS ORDERED: Bisacodyl 10 MG SUPP PR PRN (15:09)
[2018-10-25] MEDS ORDERED: Lorazepam 1 MG TAB PO PRN (15:11)
[2018-10-25] MEDS ORDERED: traMADol HCl 50 MG TAB PO PRN (15:11)
[2018-10-25] MEDS ORDERED: Ondansetron PF 4 MG/2 ML Vial ONE (16:40)
[2018-10-25] MEDS ORDERED: Lidocaine 1% PF 5 ML VIAL ONE (16:40)
[2018-10-25] MEDS ORDERED: PHENYLEPHRINE-NS 100 MCG/ML 10 ML SYRINGE ONE (16:40)
[2018-10-25] MEDS ORDERED: PROPOFOL 200 MG/20 ML VIAL ONE (16:40)
[2018-10-25] MEDS: Carbidopa/Levodopa 25-100 mg Tablet PO SCH (20:07)
[2018-10-25] MEDS: traMADol HCl 50 MG TAB PO PRN (20:08)
[2018-10-25] MEDS: Docusate 100 MG CAP PO SCH (20:08)
[2018-10-25] MEDS ORDERED: Famotidine 20 MG TAB PO SCH (21:00)
--- NOTE | 2018-10-25 21:34 | OP ---
DATE OF PROCEDURE: 10/25/2018 SERVICE: Urology. PREOPERATIVE DIAGNOSIS: BPH. POSTOPERATIVE DIAGNOSIS: BPH. PROCEDURE PERFORMED: Transurethral vaporization of the prostate. INDICATION FOR PROCEDURE: Mr. Mendoza is a 72-year-old black male with Parkinson's, who had previously seen Dr. Marley Johnson. He had planned a vaporization of the prostate. The patient wanted to continue with this plan. I discussed transurethral vaporization with the plasma electrode with all risks and benefits and he wished to proceed forward. DESCRIPTION OF PROCEDURE: After identification of armband and verification of consent, the patient was brought back to the operating room. He went on anesthesia with an LMA. He was then placed in dorsal lithotomy position and prepped and draped in usual sterile fashion. After appropriate time-out, a lubricated 26-Rwandan resectoscope sheath with visual obturator was passed with ease into the bladder. Both ureters were identified in close proximity to the bladder neck, and there was a large median lobe. The visual obturator was switched out for the wide bipolar plasma button vaporization electrode. The median lobe was initially vaporized until it was flushed with the bladder neck. As the bladder distended, the ureteral orifices moved away from the bladder neck and could be visualized. Transurethral incision of the bladder neck was performed at 5 and 7 o'clock, taking care not to injure the ureteral orifices. Intervening tissue was vaporized and circumferential vaporization was then performed from the bladder neck all the way to the verumontanum, taking care not to pass the verumontanum for sphincteric injury. Vaporization was carried out close to, but not up to the capsule of the prostate and all intervening tissue between the bladder neck incisions were vaporized out. Upon completion, meticulous hemostasis was performed until there was no bleeding identified. The prostate was wide open. The ureteral orifices were checked and found to be in orthotopic location. The resectoscope was then removed, and a 22-Rwandan three-way Foss catheter was placed with ease into the bladder. 30 mL of sterile water was placed into the balloon and left to gravity drainage. A 16-A B and O suppository was placed in the patient's rectum. He was then taken out of lithotomy, awakened, taken to PACU for recovery in stable condition. COMPLICATIONS: None. ESTIMATED BLOOD LOSS: Minimal. RETAINED TUBES AND DRAINS: 22-Rwandan three-way Foss catheter on slow CBI. SPECIMENS: None. DISPOSITION: The patient will be kept in the hospital overnight. We will plan a voiding trial in the morning and then discharged subsequently with followup on an outpatient basis. Job ID: [id number]
[2018-10-26 04:46] LABS: #Basophils 0.1 thou/uL (0.0-0.2); #Eosinphils 0.4 thou/uL (0.0-0.7); #Lymphocytes 2.2 thou/uL (1.20-3.40); #Monocytes 0.5 thou/uL (0.11-0.59); #Neutrophils 4.1 thou/uL (1.40-6.50); %Basophils 0.8 % (0.0-1.0); %Eosinophils 4.9 % (0.0-10.0); %Lymphocytes 30.4 % (21.0-51.0); %Monocytes 7.2 % (0.0-10.0); %Neutrophils 56.7 % (42.0-75.0); Hemoglobin 10.3 g/dL (14.0-18.0); Mean Corpuscular HGB CONC 31.6 g/dL (32.0-36.0); Mean Corpuscular Hemoglobin 27.2 pg (27.0-31.0); Mean Corpuscular Volume 86.3 fL (78.0-98.0); Mean Platelet Volume 8.7 fL (7.4-10.4); Platelet Count 184 thou/uL (130-400); RBC Distribution Width 13.3 % (11.5-14.5); Red Blood Cell (RBC) Count 3.77 mill/uL (4.70-6.10); White Blood Cell (WBC) Count 7.2 thou/uL (4.8-10.8)
[2018-10-26 05:07] LABS: Anion Gap 10 mmol/L (10-20); BUN (Urea Nitrogen) 21 mg/dL (8.4-25.7); Calc. Creatinine Clearance 76 mL/min (70-130); Calcium 9.6 mg/dL (7.8-10.44); Carbon Dioxide 29 mmol/L (23-31); Chloride 103 mmol/L (98-107); Estimated GFR-MDRD Greater than 90; Glucose 81 mg/dL (83-110); Potassium 4.7 mmol/L (3.5-5.1); Sodium 137 mmol/L (136-145)
[2018-10-26] MEDS: traMADol HCl 50 MG TAB PO PRN (05:34)
[2018-10-26] MEDS: Carbidopa/Levodopa 25-100 mg Tablet PO SCH (08:28)
[2018-10-26] MEDS: Docusate 100 MG CAP PO SCH (08:29)
[2018-10-26] MEDS ORDERED: Torsemide 10 MG TAB PO SCH (09:00)
[2018-10-26] MEDS ORDERED: Lisinopril 5 MG TAB PO SCH (09:00)
[2018-10-26 11:44] VITALS: BP 112/69; TEMP 98
--- NOTE | 2018-10-28 13:20 | PRG ---
DATE OF SERVICE: 10/26/2018 SUBJECTIVE: The patient states he is feeling well. No complaints. He had a good night. No pain. OBJECTIVE: VITAL SIGNS: Temperature 97.9, pulse 62, respirations 16, blood pressure 109/66, and saturation 99% on room air. GENERAL: No apparent distress. Communicating and alert. CARDIOVASCULAR: Regular rate and rhythm. ABDOMEN: Soft, nontender, and nondistended. : Foss catheter in place with very light blood-tinged urine, completely translucent without clots. EXTREMITIES: No clubbing, cyanosis, or edema. LABORATORY EVALUATION: Full set of labs are in the [employer] [facility] system which I have reviewed. Of note, the patient's hemoglobin is 10.3 with white count of 7.2. Creatinine of 0.86. ASSESSMENT AND PLAN: A 72-year-old black male, status post TUVP, postop day 1. Plan void trial today. If successful voiding with relatively clear urine, the patient can go home and follow up with me in 1 week for a postop check. We will discharge on tramadol and oxybutynin. The patient should also follow up with PCP. I have gone over all of his discharge instructions and counseled him appropriately regarding his discharge. Job ID: [id number]
== END 2018-10-26 16:08 | disposition home or self-care (01) ==
LOC: SDC 09:15 → SURG A 16:50
PROVIDERS: ADMIT Urology; ATTEND Urology
PROC: 0V507ZZ Destruction of Prostate, Via Natural or Artificial Opening (ICD-10-PCS; principal; 2018-10-25)
DX: N40.0 Benign prostatic hyperplasia without lower urinary tract symptoms (principal); G20 Parkinson's disease; H26.9 Unspecified cataract; I10 Essential (primary) hypertension; K21.9 Gastro-esophageal reflux disease without esophagitis; R60.0 Localized edema; Z88.8 Allergy status to other drugs, medicaments and biological substances
CPT/HCPCS: 52648; 80048; 84132; 85025; 96365; G0378; 36415; J1956; J2001; J2250; J2405; J2704; J3010; Q0163

== ENCOUNTER 2021-04-22 13:09 | Outpatient (CLI) | payer MEDICARE, BC | END 2021-04-22 13:10 | disposition home or self-care (01) | LOC: MRI 13:09 | PROVIDERS: ATTEND Nurse Practitioner Acute Care | DX: R29.898 Other symptoms and signs involving the musculoskeletal system (principal); M47.816 Spondylosis without myelopathy or radiculopathy, lumbar region | CPT/HCPCS: 72148 ==